=== PATIENT | male | born 1995 | race Caucasian/White ===

== ENCOUNTER → 2018-05-24 | Emergency (ER) | payer OTHER ==
[~2018-05-24] VITALS: Ht 175.3 cm; Wt 79.4 kg
[~2018-05-24] MED LIST: BUTALB-ACETAMI1 EACH PO; INTESTINEX680 MG PO; NASONEX17 GM NS; SUDAFED 12 HOU120 MG PO; ZANTAC150 MG PO
== END | disposition home or self-care (01) ==
LOC: ER 22:16
DX: G43.909 Migraine, unspecified, not intractable, without status migrainosus (principal)